=== PATIENT | female | born 1950 | race Caucasian/White ===

== ENCOUNTER 2021-10-14 22:11 | Inpatient (IN) | payer MEDICARE, OTHER ==
[~2021-10-14] VITALS: Ht 180.3 cm; Wt 102.5 kg
--- NOTE | 2021-10-14 22:40 | NUR ---
DR. MIKE AT [facility], [facility].
[2021-10-14] MEDS ORDERED: ATOR10TA PO (22:45)
[2021-10-14] MEDS ORDERED: LISI2.5T14 PO (22:45)
[2021-10-14] MEDS ORDERED: WARF-58 PO (22:45)
[2021-10-14] MEDS ORDERED: ERYT3.5O24 EACHEYE (22:45)
[2021-10-14] MEDS ORDERED: BENZ68FO TP (22:45)
[2021-10-14] MEDS ORDERED: OMEP20CA15 PO (22:45)
[2021-10-14] MEDS ORDERED: TRAM50TA2 PO (22:45)
[2021-10-14] MEDS ORDERED: ACET-73 PO (22:45)
[2021-10-14 23:11] LABS: CREATININE 0.8 mg/dL (0.6-1.3); POTASSIUM 3.5 mmol/L (3.5-5.1)
[2021-10-14 23:41] LABS: MAGNESIUM 1.9 mg/dL (1.8-2.4)
[2021-10-15] MEDS ORDERED: CYANOCOBALAMIN 1000 MCG/ML VIAL IM ONE
--- NOTE | 2021-10-15 01:15 | NUR ---
GAVE REPORT TO EFREN STILES.
[2021-10-15] MEDS ORDERED: CYANOCOBALAMIN 1000 MCG/ML VIAL ONE (01:38)
--- NOTE | 2021-10-15 02:06 | NUR ---
Pt. admitted to [facility] , under care of Dr. Brunner and Magdi Allen. Belongs List completed
[2021-10-15 02:15] VITALS: BP 113/56
[2021-10-15] MEDS ORDERED: LORAZEPAM 1 MG TABLET PO PRN (03:00)
[2021-10-15] MEDS ORDERED: BLOOD SUGAR DIAGNOSTIC 1 EACH STRIP VI ONE (03:00)
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
[2021-10-15] MEDS ORDERED: MAGNESIUM HYDROXIDE 30 ML LIQUID UDC PO PRN (04:00)
[2021-10-15] MEDS ORDERED: MAG HYDROX/AL HYDROX/SIMETH 30 ML LIQUID UDC PO PRN (04:00)
[2021-10-15] MEDS ORDERED: FURO40TA5 PO (06:08)
[2021-10-15] MEDS: ACETAMINOPHEN 325 MG TABLET PO PRN ×3 (06:55→22:33)
[2021-10-15] MEDS: DIVALPROEX 125 MG TABLET.DR PO SCH ×2 (10:05→20:15)
[2021-10-15] MEDS: risperiDONE 1 MG TABLET PO SCH ×2 (10:43→20:13)
[2021-10-15] MEDS ORDERED: SIMV20TA2 PO (12:12)
--- NOTE | 2021-10-15 13:05 | NUR ---
WOUND CARE CONSULT: PT PRESENTS WITH LARGE RT LOWER LEG ULCER, PRESENT ON ADMISSION. DRY SCAB NOTED TO LEFT 2ND TOE, PRESENT ON ADMISSION. DR ORTA CALLED FOR DPM CONSULT. IN AGREEMENT WITH PLAN OF CARE.
--- NOTE | 2021-10-15 16:15 | NUR ---
CANDI Initial Discharge Note: Pt currently resides at [facility] located at [address] [place] [address] ([phone]). CANDI contacted [facility] and left a voicemail for the admissions department regarding pt's acceptance back upon discharge. Pt is agreeable to another SNF if she cannot return to he current residential. Pt stated she does not have any family or friends contact. CANDI will continue to work with pt and MD to ensure a safe and proper discharge plan.
--- NOTE | 2021-10-15 16:18 | NUR ---
Firearms Report: Loader Demolder completed and submitted a DOJ firearms report for 5150 a danger to self and grave disability certifications. A copy of report has been placed in patient chart.
--- NOTE | 2021-10-15 16:19 | NUR ---
CANDI Family Contact: Pt stated to this music writer, pt has no family and no friends contact.
[2021-10-15] MEDS ORDERED: ERYTHROMYCIN 0.5% OPHT OINT 3.5 GM TUBE EACHEYE SCH (17:00)
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
[2021-10-15 19:45] VITALS: BP 124/58
[2021-10-15] MEDS: TRAMADOL HCL 50 MG TABLET PO PRN (19:51)
[2021-10-15] MEDS: SIMVASTATIN 20 MG TABLET PO SCH (20:13)
[2021-10-15] MEDS: TEMAZEPAM 7.5 MG CAPSULE PO PRN (21:34)
[2021-10-16] MEDS: TRAMADOL HCL 50 MG TABLET PO PRN ×2 (02:18→20:04)
[2021-10-16] MEDS: ACETAMINOPHEN 325 MG TABLET PO PRN ×3 (04:34→20:58)
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
[2021-10-16 07:30] VITALS: BP 141/63
[2021-10-16] MEDS: risperiDONE 1 MG TABLET PO SCH ×2 (08:30→20:05)
[2021-10-16] MEDS: DIVALPROEX 125 MG TABLET.DR PO SCH ×2 (08:30→09:00)
[2021-10-16] MEDS: FUROSEMIDE 40 MG TABLET PO SCH (08:30)
[2021-10-16] MEDS ORDERED: WARFARIN SODIUM 4 MG TABLET PO SCH (09:00)
[2021-10-16] MEDS: TOPIRAMATE 25 MG TABLET PO SCH ×2 (14:23→20:09)
--- NOTE | 2021-10-16 15:36 | NUR ---
Dr. Packer examined this patient right lower leg ulcer and left 2nd toe, and orders are being carry out, such as zero foam, thera honey and dopler ultrassound ( arterial).
[2021-10-16 16:00] VITALS: BP 97/67
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
[2021-10-16] MEDS ORDERED: WARFARIN SODIUM 4 MG TABLET PO ONE (17:00)
--- NOTE | 2021-10-16 17:17 | NUR ---
Patient refuses blood to be drawn, Coumadin 8 mg not given as requested by pharmacy.
--- NOTE | 2021-10-16 18:14 | NUR ---
Patient refuses wound cleanse and dressing. 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 Pt. wrapped toilet paper around her wound.
[2021-10-16 19:55] VITALS: BP 131/64
[2021-10-16] MEDS: SIMVASTATIN 20 MG TABLET PO SCH (20:05)
[2021-10-17] MEDS: ACETAMINOPHEN 325 MG TABLET PO PRN ×3 (03:19→19:08)
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
[2021-10-17 07:31] LABS: HEMATOCRIT 30.2 % (31.2-41.9); MEAN CORPUSCULAR HEMOGLOBIN 32.9 uug (24.7-32.8); PLATELET COUNT (AUTO) 328 K/uL (179-408)
[2021-10-17 07:58] LABS: THYROID STIMULATING HORMONE 0.561 mIU/mL (0.358-3.740)
[2021-10-17 08:17] VITALS: BP 134/84
[2021-10-17] MEDS: TOPIRAMATE 25 MG TABLET PO SCH ×2 (08:53→17:39)
[2021-10-17] MEDS: FUROSEMIDE 40 MG TABLET PO SCH (08:56)
[2021-10-17] MEDS: TRAMADOL HCL 50 MG TABLET PO PRN ×2 (08:56→15:56)
[2021-10-17] MEDS: risperiDONE 1 MG TABLET PO SCH ×2 (08:56→20:23)
[2021-10-17] MEDS: THERAHONEY GEL 1.5 OZ TUBE TOP SCH (09:00)
[2021-10-17 09:05] LABS: BILIRUBIN,TOTAL 0.2 mg/dL (0.2-1.0); CREATININE 0.8 mg/dL (0.6-1.3); PHOSPHOROUS 4.1 mg/dL (2.5-4.9); POTASSIUM 4.2 mmol/L (3.5-5.1); TOTAL PROTEIN, SERUM 6.9 g/dL (6.4-8.2)
--- NOTE | 2021-10-17 09:42 | NUR ---
Gps/Accountant Property- Patient ate 100 % of breakfast , when director music called patient needed to be NPO for CTA abdomen and pelvis , informed patient already ate good breakfast . Instructions received to keep patient NPO for now, patient was well informed of the procedure. Venous doppler also in progress at her bedside , both lower ext.
[2021-10-17] MEDS ORDERED: WARFARIN SODIUM 5 MG TABLET PO ONE (10:00)
[2021-10-17] MEDS: CYANOCOBALAMIN 1,000 MCG TABLET PO SCH (11:55)
--- NOTE | 2021-10-17 11:57 | NUR ---
Gps/Electronic Component Processor- Saline lock #20 inserted to her right AC. in prep. for CTA pelvis and abdomen .Consent for the procedure was done , reviewed with patient, verbalized understanding.
[2021-10-17] MEDS ORDERED: IV NORMAL SALINE 250 ML IV ONE (12:32)
[2021-10-17] MEDS ORDERED: SWABABLE VALVE TRANSFER SET EA MC ONE (12:32)
[2021-10-17] MEDS ORDERED: IOHEXOL 350 100 ML INFUS..BTL ONE (12:32)
[2021-10-17 16:00] VITALS: BP 136/80
[2021-10-17] MEDS: SIMVASTATIN 20 MG TABLET PO SCH (20:25)
[2021-10-17] MEDS: TEMAZEPAM 7.5 MG CAPSULE PO PRN (20:44)
[2021-10-18] MEDS: TRAMADOL HCL 50 MG TABLET PO PRN ×3 (02:55→17:24)
[2021-10-18] MEDS: ACETAMINOPHEN 325 MG TABLET PO PRN ×3 (04:38→17:25)
--- NOTE | 2021-10-18 05:07 | NUR ---
Received patient in her rooms sitting in w/c, patient to be pleasant when greeted, A&Ox2, compliant with medications, snacks provided with good appetite. Patient noted to be sleeping in her w/c by the bathroom door , encouraged to sleep in her bed, however make excuse that she's needs to go to bathroom. Patient given Ultram and Tylenol for pain. Patient agreed to shower. Frequent monitoring observed. safety monitoring observed
[2021-10-18] MEDS: risperiDONE 1 MG TABLET PO SCH ×2 (09:32→20:12)
[2021-10-18] MEDS: TOPIRAMATE 25 MG TABLET PO SCH ×2 (09:33→17:36)
[2021-10-18] MEDS: FUROSEMIDE 40 MG TABLET PO SCH (09:33)
[2021-10-18] MEDS: CYANOCOBALAMIN 1,000 MCG TABLET PO SCH (09:33)
[2021-10-18] MEDS: THERAHONEY GEL 1.5 OZ TUBE TOP SCH (11:45)
[2021-10-18] MEDS: ENOXAPARIN SODIUM 100 MG/ML DISP.SYRIN SQ SCH ×2 (11:52→21:44)
--- NOTE | 2021-10-18 15:54 | NUR ---
Gps/Warehouse Administrator--Wound care to right lower ext,. done as ordered..Patient claimed she needed to be back on doxycicline 100 mg po BID, claimed she did not complete her oral abx tx r/t to she fell at the facility . Jeramie Justice DNP was called, as requested by patient, order received.
--- NOTE | 2021-10-18 15:56 | NUR ---
SW Family Contact Update: Pt's sister, Millicent ([phone]) left a voicemail for this SW stating that the pt wanted to go to go live with her upon discharge. Millicent stated the that neither she nor any family members are willing to have patient stay with them due to her volatility and threatening behavior. Millicent stated she is happy the pt is receiving care at [facility] and that she is safe. Millicent stated she is concerned for her sister's well-being. Millicent stated to this SW in the voicemail that pt has been in [facility] and served time but she is still fearful of patient. Plan : plant nursery worker will work on alternative placement if patient is willing.
--- NOTE | 2021-10-18 17:30 | NUR ---
Gps/Welfare Manager- Encouraged patient to elevated lower ext, when in bed, noted increased redness, as well as some edema, patient complained of burning pain on her wounds , encouraged to elevate lower ext. when in bed. Verbalized adequate pain relief .
[2021-10-18] MEDS: DOXYCYCLINE HYCLATE 100 MG TABLET PO SCH ×2 (17:36→21:01)
[2021-10-18] MEDS: SIMVASTATIN 20 MG TABLET PO SCH (20:12)
[2021-10-18] MEDS: TEMAZEPAM 7.5 MG CAPSULE PO PRN (20:45)
[2021-10-18 20:49] VITALS: BP 126/56
[2021-10-19 07:46] VITALS: BP 118/73
[2021-10-19] MEDS: FUROSEMIDE 40 MG TABLET PO SCH (08:12)
[2021-10-19] MEDS: risperiDONE 1 MG TABLET PO SCH ×2 (08:12→20:56)
[2021-10-19] MEDS: DOXYCYCLINE HYCLATE 100 MG TABLET PO SCH ×2 (08:12→20:55)
[2021-10-19] MEDS: TOPIRAMATE 25 MG TABLET PO SCH ×2 (08:12→16:17)
[2021-10-19] MEDS: CYANOCOBALAMIN 1,000 MCG TABLET PO SCH (08:14)
[2021-10-19] MEDS: THERAHONEY GEL 1.5 OZ TUBE TOP SCH (08:14)
[2021-10-19] MEDS: ENOXAPARIN SODIUM 100 MG/ML DISP.SYRIN SQ SCH ×2 (08:15→21:00)
[2021-10-19 08:38] LABS: CREATININE 0.8 mg/dL (0.6-1.3); POTASSIUM 3.6 mmol/L (3.5-5.1)
[2021-10-19 16:02] VITALS: BP 128/53
[2021-10-19] MEDS: WARFARIN SODIUM 4 MG TABLET PO SCH (16:20)
[2021-10-19] MEDS: TRAMADOL HCL 50 MG TABLET PO PRN (16:22)
[2021-10-19] MEDS: ACETAMINOPHEN 325 MG TABLET PO PRN (16:52)
--- NOTE | 2021-10-19 20:30 | NUR ---
RECEIVED PATIENT IN HER ROOM SITTING IN A WHEEL CHAIR. SHE IS NOTED A/O X 3 ABLE TO VERBALIZED HER FEELINGS. PT I NO DISTRESS. HER MOOD IS LABILE AFFECT IS BLUNTED, SPEECH IS TANGENTAL. PATIENT IS COMPLAINT WITH HER MEDICATION REGIMENT AT THIS TIME. PT HAS A TREATMENT FOR HER WOUND ON HER RIGHT LOWER INNER LEG, NOTED STABLE. SHE WAS ADVISE TO REPORT ANY CHANGES IN HER CONDITION. SHE DENIED PAIN AT THIS TIME. HER V/S ARE STABLE. PATIENT WAS GIVEN PO FLUIDS AND SNACKS. PATIENT IS REASSURED FOR HER SAFETY, SAFETY AND FALL PRECAUTION ARE IN PLACE. WILL CONTINUE TO MONITOR.
[2021-10-19] MEDS: SIMVASTATIN 20 MG TABLET PO SCH (20:56)
[2021-10-20] MEDS: ACETAMINOPHEN 325 MG TABLET PO PRN ×3 (00:39→20:02)
[2021-10-20 07:30] VITALS: BP 116/43
[2021-10-20] MEDS: DOXYCYCLINE HYCLATE 100 MG TABLET PO SCH ×2 (09:41→20:03)
[2021-10-20] MEDS: TOPIRAMATE 25 MG TABLET PO SCH ×2 (09:44→17:23)
[2021-10-20] MEDS: risperiDONE 1 MG TABLET PO SCH ×2 (09:45→20:02)
[2021-10-20] MEDS: CYANOCOBALAMIN 1,000 MCG TABLET PO SCH (09:45)
[2021-10-20] MEDS: THERAHONEY GEL 1.5 OZ TUBE TOP SCH (09:45)
[2021-10-20] MEDS: FUROSEMIDE 40 MG TABLET PO SCH (09:45)
[2021-10-20] MEDS: ENOXAPARIN SODIUM 100 MG/ML DISP.SYRIN SQ SCH ×2 (09:47→20:04)
--- NOTE | 2021-10-20 14:42 | NUR ---
Received patient sleeping in her room. Pt. is A/O X 3 to person, place, environment. Pt. is isolative, demanding, argumentative. 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 It needs to be dry once in awhile" Tylenol 650 mg was given at 10:28 for lower back pain, effective. Compliant with medications. Patient is encourage to verbalize concerns. Fall and safety precautions implemented.
[2021-10-20 15:03] VITALS: BP 121/54
[2021-10-20] MEDS: WARFARIN SODIUM 4 MG TABLET PO SCH (17:23)
[2021-10-20] MEDS: SIMVASTATIN 20 MG TABLET PO SCH (20:02)
[2021-10-20] MEDS: TRAMADOL HCL 50 MG TABLET PO PRN (22:00)
[2021-10-20] MEDS: TEMAZEPAM 7.5 MG CAPSULE PO PRN (22:31)
[2021-10-21] MEDS: ACETAMINOPHEN 325 MG TABLET PO PRN ×2 (02:11→20:40)
[2021-10-21] MEDS: TRAMADOL HCL 50 MG TABLET PO PRN (04:01)
[2021-10-21 07:53] VITALS: BP 119/49
[2021-10-21] MEDS: CYANOCOBALAMIN 1,000 MCG TABLET PO SCH (08:21)
[2021-10-21] MEDS: TOPIRAMATE 25 MG TABLET PO SCH ×2 (08:21→17:40)
[2021-10-21] MEDS: DOXYCYCLINE HYCLATE 100 MG TABLET PO SCH ×2 (08:21→20:37)
[2021-10-21] MEDS: FUROSEMIDE 40 MG TABLET PO SCH (08:21)
[2021-10-21] MEDS: risperiDONE 1 MG TABLET PO SCH (08:22)
[2021-10-21] MEDS: THERAHONEY GEL 1.5 OZ TUBE TOP SCH (08:27)
[2021-10-21 15:50] VITALS: BP 112/49
[2021-10-21] MEDS ORDERED: risperiDONE 1 MG TABLET PO SCH (17:00)
--- NOTE | 2021-10-21 17:16 | NUR ---
Received patient sleeping in her room. Pt. is A/O X 3 to person, place, environment. Pt. 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 is refusing wound treatment. 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 Patient is encourage to vent feelings and emotions. Fall and safety precautions implemented.
[2021-10-21] MEDS: WARFARIN SODIUM 4 MG TABLET PO SCH (17:46)
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
[2021-10-21] MEDS: risperiDONE 2 MG TABLET PO SCH (20:37)
[2021-10-21] MEDS: SIMVASTATIN 20 MG TABLET PO SCH (20:37)
[2021-10-21 21:00] VITALS: BP 126/56
[2021-10-21] MEDS: TEMAZEPAM 7.5 MG CAPSULE PO PRN (21:05)
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
[2021-10-22] MEDS: ACETAMINOPHEN 325 MG TABLET PO PRN ×3 (05:04→20:40)
[2021-10-22] MEDS: TRAMADOL HCL 50 MG TABLET PO PRN ×2 (06:21→16:05)
[2021-10-22] MEDS: DOXYCYCLINE HYCLATE 100 MG TABLET PO SCH ×2 (08:51→20:31)
[2021-10-22] MEDS: CYANOCOBALAMIN 1,000 MCG TABLET PO SCH (08:52)
[2021-10-22] MEDS: TOPIRAMATE 25 MG TABLET PO SCH ×2 (08:52→18:04)
[2021-10-22] MEDS: FUROSEMIDE 40 MG TABLET PO SCH (08:52)
[2021-10-22] MEDS: risperiDONE 2 MG TABLET PO SCH ×2 (08:52→20:31)
[2021-10-22] MEDS: THERAHONEY GEL 1.5 OZ TUBE TOP SCH (08:57)
[2021-10-22 10:25] VITALS: BP 142/55
--- NOTE | 2021-10-22 11:30 | NUR ---
CANDI Discharge Update Update: CANDI contacted pt's friend, John ([phone]) per pt's request and discussed pt's discharge plan. John stated the pt is a close friend and he can provide care and transportation for her after discharge. CANDI informed John that this designer/writer will contact him with further updates in regards to discharge plan. John is aware and agreeable.
--- NOTE | 2021-10-22 11:39 | NUR ---
SW Family Contact: SW contacted and left a voicemail for Pt's sister, Millicent ([phone]) for a call back regarding pt's discharge update with her friend, Ojhn ([phone]) who agreed to provide transportation and care upon discharge.
--- NOTE | 2021-10-22 11:41 | NUR ---
WOUND CARE CONSULT: RECEIVED ANOTHER CONSULT FOR LOWER EXTREMITIES. PT FOLLOWED BY DR ORTA FOR LOWER LEGS. DEFER TO DPM FOR WOUND TREATMENT PLAN.
--- NOTE | 2021-10-22 11:58 | NUR ---
CANDI Family Contact: Pt's sister Millicent ([phone]) returned CANDI's call. CANDI stated pt's discharge update with her friend, John ([phone]) who agreed to provide transportation and care upon discharge. Millicent stated that the pt does not have any friends and they are her homeless friends. Millicent is aware that the pt has a right to choose. CANDI stated this designer writer will confirm with the Millicent prior to discharge.
--- NOTE | 2021-10-22 14:00 | NUR ---
Francisco from [facility] [place] called at 13:50 today, and informed that Yasmine's Writ is scheduled tomorrow at 08:[address] fax all information about the Writ. U needs to fax patient's information to director of public health, his phone number is [phone] for more information. In case patient is discharge before hearing, U needs to call Francisco at [phone].
--- NOTE | 2021-10-22 14:24 | NUR ---
GPS: PT WILL BE DISCHARGE TOMORROW PER ALEXANDRU AGUIRRE. INFORMED BEHAVIORAL DIRECTOR CURT AND CARTON MAKING MACHINIST MADE AWARE.
[2021-10-22 14:56] VITALS: BP 149/77
--- NOTE | 2021-10-22 16:07 | NUR ---
CANDI Early Discharge Note: Pt will be discharged to [facility] located at [address] [place] [id number] ([phone]) via Ambulance transportation on Thursday, October 23, 2021 at 7:30AM. CANDI spoke with admin coordinator, Adalgisa at the facility who states they are ready to accept the patient today. Pt is aware and agreeable with discharge plans. Pts sister, Millicent is aware and agreeable with the discharge plan. Per Millicent, pt does not have a DPOA or conservator. Pts friend, John ([phone]) stated to SW that he is unable to provide transportation for the pt and that the pt should follow the medical recommendation of the hospital. SW informed pt and pt is aware and agreeable. Pt is alert and oriented x4, is unable to plan for self-care at this time; however, is willing to accept care at SNF. Pt denies any suicidal or homicidal ideation. Pt will follow-up at the facility with Psychiatrist, Dr. Brunner and Cnc Maintenance Mechanic, Dr. Nicole. Pt presents with calm mood and congruent affect. PHARMACY: [facility] ([phone]) [phone] [facility] [id number].
[2021-10-22] MEDS ORDERED: WARFARIN SODIUM 4 MG TABLET PO SCH (17:00)
--- NOTE | 2021-10-22 17:53 | NUR ---
GPS: SPOKE WITH MELISSA DISPATCHER AT [facility]. OKAY TO YARD CLERK PT GOING TO [facility] TOMORROW AT 0730.
--- NOTE | 2021-10-22 18:26 | NUR ---
Patient is given Tylenol 650 mg at 13:56 and Tramadol at 16:05. Pt. refuses wound care. Pt. is delusional grandiose "I have many degrees and know what is best for me" Emotional support given. Fall and safety precautions implemented.
[2021-10-22 20:00] VITALS: BP 116/52
[2021-10-22] MEDS: SIMVASTATIN 20 MG TABLET PO SCH (20:31)
[2021-10-22] MEDS: TEMAZEPAM 7.5 MG CAPSULE PO PRN (21:53)
[2021-10-23] MEDS: ACETAMINOPHEN 325 MG TABLET PO PRN (03:12)
[2021-10-23] MEDS: TRAMADOL HCL 50 MG TABLET PO PRN (04:35)
--- NOTE | 2021-10-23 05:04 | NUR ---
GPS: Pt.already awake,requested for an early shower in preparation for her early discharge later. Slightly anxious,remains delusional and gets offensive easily when being re-directed. Continues to refuse wound care done to her right lower leg ulcer. Refusing to have right lower leg photographed despite numerous attempts by staff. Safe environment provided. Health teachings/instructions given by staff to pt.and verbalized understanding although not in agreement. Needs attended. Will continue to monitor.
--- NOTE | 2021-10-23 06:47 | NUR ---
GPS: Called [facility] in [place] to give report. Per "Juwan" campus receptionist at this time, RN hospitality house supervisor at this time unable to get report and instructing staff to call them back @ 0830. Informed Juwan that pt's time of pick-up here is 0730. RN supv at facility insisting she can't get report at the moment.
[2021-10-23 07:30] VITALS: BP 117/95
[2021-10-23] MEDS: risperiDONE 2 MG TABLET PO SCH (08:03)
[2021-10-23] MEDS: DOXYCYCLINE HYCLATE 100 MG TABLET PO SCH (08:03)
[2021-10-23] MEDS: CYANOCOBALAMIN 1,000 MCG TABLET PO SCH (08:03)
[2021-10-23] MEDS: TOPIRAMATE 25 MG TABLET PO SCH (08:03)
[2021-10-23] MEDS: FUROSEMIDE 40 MG TABLET PO SCH (08:03)
[2021-10-23] MEDS: THERAHONEY GEL 1.5 OZ TUBE TOP SCH (08:03)
--- NOTE | 2021-10-23 08:20 | NUR ---
CANDI Family Contact: SW contacted Pt's sister Millicent ([phone]) and informed her of pt's discharge this morning to [facility] ([phone]) and provide additional discharge details per request. Millicent is aware, agreeable and thankful.
--- NOTE | 2021-10-23 08:50 | NUR ---
Received orders to discharge this patient to [facility] by [facility]. Patient is A/O X 3 to person, place. Patient was agreeable to discharge plans. All 09:00 scheduled medications were given to patient. All valuables, belongings, and home medications were returned to patient. Patient left unit at 08:45am. Emotional support provided. Fall and safety precautions implemented.
== END 2021-10-23 08:45 | DRG 885 ==
LOC: ER 22:20 → GPS 10-15 01:38
PROVIDERS: ADMIT Nurse Practitioner Psychiatric/Mental Health; ATTEND Internal Medicine
DX: F25.0 Schizoaffective disorder, bipolar type (principal); L97.219 Non-pressure chronic ulcer of right calf with unspecified severity; L97.818 Non-pressure chronic ulcer of other part of right lower leg with other specified severity; D68.61 Antiphospholipid syndrome; I87.2 Venous insufficiency (chronic) (peripheral); Z79.01 Long term (current) use of anticoagulants; E78.5 Hyperlipidemia, unspecified; E66.9 Obesity, unspecified; Z68.31 Body mass index [BMI] 31.0-31.9, adult; E53.8 Deficiency of other specified B group vitamins; D63.8 Anemia in other chronic diseases classified elsewhere; I10 Essential (primary) hypertension; I73.9 Peripheral vascular disease, unspecified; M79.604 Pain in right leg; R79.89 Other specified abnormal findings of blood chemistry; D53.9 Nutritional anemia, unspecified; Z86.718 Personal history of other venous thrombosis and embolism; Z86.711 Personal history of pulmonary embolism; F41.9 Anxiety disorder, unspecified; Z88.6 Allergy status to analgesic agent; Z88.2 Allergy status to sulfonamides; Z88.1 Allergy status to other antibiotic agents
CPT/HCPCS: 36415; 71045; 83735; 83921; 84100; 84443; 85025; 85610; 86592; 93005; 97161; A4663; J1650; J3420; Q9967

== ENCOUNTER 2022-01-29 13:50 | Inpatient (IN) | payer MEDICARE, OTHER ==
[~2022-01-29] VITALS: Ht 180.3 cm; Wt 104.8 kg
[~2022-01-29 13:50] MED LIST: ACET-73 PO; BENZ68FO TP; FURO40TA5 PO; LISI2.5T14 PO; OMEP20CA15 PO; SIMV20TA2 PO; TRAM50TA2 PO; WARF-58 PO
--- NOTE | 2022-01-29 14:28 | NUR ---
PT WAS EVALUATED AND MEDICALLY CLEARED BY DR JACOBS FOR MHU ADMISSION. PT IS ON HOLD GRAVELY DISABLED. PT WAS TRANSFERED TO [facility] ROOM #[id number]. REPORT WAS GIVEN TO RN MHU.
[2022-01-29] MEDS ORDERED: MAGNESIUM HYDROXIDE 30 ML LIQUID UDC PO PRN (15:15)
[2022-01-29] MEDS ORDERED: BLOOD SUGAR DIAGNOSTIC 1 EACH STRIP VI ONE (15:15)
[2022-01-29] MEDS ORDERED: MAG HYDROX/AL HYDROX/SIMETH 30 ML LIQUID UDC PO PRN (15:15)
--- NOTE | 2022-01-29 15:18 | NUR ---
MHU: Admission Notes: Received 71 y/o female patient at 1450 hours on WC via ER staff. Patient is on a 5150 hold. Full Code status. Pt was AOx3, cooperative, calm, and responding to questions accordingly. No s/s of respiratory distress nor pain. Patient has lower (L) leg wound. Pictures taken. Patient ambulates, is self-care, and continent. Weight: 237 lbs, Height: 5'11". Patient will be followed up by psychiatrist Ceasar and car whacker Tiffany.
[2022-01-29 15:30] VITALS: BP 139/61
[2022-01-29] MEDS ORDERED: DIPH25CA83 PO (18:27)
[2022-01-29] MEDS ORDERED: ONDA-104 PO (18:27)
[2022-01-29] MEDS ORDERED: SENN-261 PO (18:27)
[2022-01-29] MEDS ORDERED: DOCU100C36 PO (18:27)
[2022-01-29] MEDS ORDERED: TEMA30CA PO (18:27)
[2022-01-29] MEDS ORDERED: POTA10CA43 PO (18:27)
[2022-01-29] MEDS ORDERED: RISP1TAB7 PO (18:27)
[2022-01-29] MEDS ORDERED: BENZ0.5T43 PO (18:27)
[2022-01-29] MEDS ORDERED: TOPI50TA24 PO (18:27)
[2022-01-29] MEDS ORDERED: ALBU18HF2 IH (18:28)
[2022-01-29] MEDS ORDERED: NYST60PO TP (18:28)
[2022-01-29] MEDS ORDERED: ICOS1CAP PO (18:30)
[2022-01-29] MEDS ORDERED: CHOL400T PO (18:30)
[2022-01-29] MEDS: WARFARIN SODIUM 4 MG TABLET PO SCH (19:13)
--- NOTE | 2022-01-29 19:13 | NUR ---
Patient is hyperverbal and non-compliant. Suspicious, and easily agitated. Manipulative. Must set boundaries.
[2022-01-29 19:46] VITALS: BP 142/64
[2022-01-29] MEDS: SIMVASTATIN 20 MG TABLET PO SCH (21:00)
[2022-01-29] MEDS: TEMAZEPAM 7.5 MG CAPSULE PO PRN (22:55)
[2022-01-29] MEDS: ACETAMINOPHEN 325 MG TABLET PO PRN (23:27)
[2022-01-30] MEDS: ACETAMINOPHEN 325 MG TABLET PO PRN ×4 (05:59→23:48)
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
[2022-01-30 07:30] VITALS: BP 136/52
[2022-01-30 08:41] LABS: HEMATOCRIT 33.1 % (31.2-41.9); MEAN CORPUSCULAR HEMOGLOBIN 33.2 uug (24.7-32.8); PLATELET COUNT (AUTO) 275 K/uL (179-408)
[2022-01-30 09:17] LABS: CREATININE 0.8 mg/dL (0.6-1.3); POTASSIUM 4.3 mmol/L (3.5-5.1)
[2022-01-30] MEDS ORDERED: risperiDONE 1 MG TABLET PO PRN (09:30)
[2022-01-30] MEDS ORDERED: DOCUSATE SODIUM 100 MG CAPSULE PO PRN (10:15)
[2022-01-30] MEDS ORDERED: ALBUTEROL SULFATE 8 GM HFA.AER.AD IH PRN (10:15)
[2022-01-30] MEDS ORDERED: SENNOSIDES 1 TABLET PO PRN (10:15)
[2022-01-30] MEDS ORDERED: ONDANSETRON HCL 4 MG TABLET PO PRN (10:15)
[2022-01-30] MEDS ORDERED: ALBUTEROL SULFATE 2.5 MG/3 ML NEBU NEB PRN (10:30)
[2022-01-30] MEDS: LISINOPRIL 20 MG TABLET PO SCH (10:42)
[2022-01-30] MEDS: FUROSEMIDE 40 MG TABLET PO SCH (10:43)
--- NOTE | 2022-01-30 10:44 | NUR ---
WOUND CARE CONSULT: PT PRESENTS WITH ULCERS TO LOWER EXTREMITIES, PRESENT ON ADMISSION. PT HAS BEEN REFUSING DRESSINGS AND STATES THAT SHE DOES NOT HAVE LEG ULCERS. DR ORTA CALLED FOR DPM CONSULT. IN AGREEMENT WITH PLAN OF CARE.
[2022-01-30] MEDS: risperiDONE 1 MG TABLET PO SCH ×2 (10:45→17:23)
[2022-01-30] MEDS: TOPIRAMATE 25 MG TABLET PO SCH ×2 (10:45→21:05)
--- NOTE | 2022-01-30 13:46 | NUR ---
Patient is given tylenol 650 mg for generalized pain rated 10 on the scale of 1 to 10, will be monitored for effectiveness.
--- NOTE | 2022-01-30 14:09 | NUR ---
CANDI Initial Discharge Note: Patient currently resides at [address] [place] [address]. Per patient, she would like to be discharged back to her apartment at [address] [place] [address]. Pt stated she does not have a DPOA or conservator at this time. CANDI will continue to work with patient, family, and MD to ensure a safe and proper discharge plan.
--- NOTE | 2022-01-30 14:18 | NUR ---
Firearms Report: Grinder Operator Automatic completed and submitted a DOJ firearms report for 5150 grave disability certifications. A copy of report has been placed in patient chart.
[2022-01-30 16:00] VITALS: BP 99/57
[2022-01-30] MEDS ORDERED: Medication Not On Formulary EA (Topiramate 50 MG) PO SCH (17:00)
[2022-01-30] MEDS ORDERED: WARFARIN SODIUM 4 MG TABLET PO SCH (17:00)
[2022-01-30] MEDS ORDERED: Medication Not On Formulary EA (Icosapent Ethyl (Vascepa) 1 GM) PO SCH (17:00)
[2022-01-30 17:23] LABS: *BILIRUBIN,URIN NEGATIVE (NEGATIVE); *BLOOD, URINE NEGATIVE (NEGATIVE); *CLARITY,URINE CLEAR (CLEAR); *COLOR,URINE LIGHT YELLOW (YELLOW); *KETONES,URINE NEGATIVE (NEGATIVE); *UROBILINOGEN,URINE 0.2 E.U./dl (NORMAL); LEUKOCYTE ESTERASE ,URINE NEGATIVE (NEGATIVE); NITRITE, URINE NEGATIVE (NEGATIVE); UGLUCOSE NEGATIVE (NEGATIVE)
[2022-01-30] MEDS: [UNRECOGNIZED DRUG - OTHER] PO SCH (17:23)
[2022-01-30] MEDS: ICOSAPENT ETHYL 1 GM PO SCH (17:23)
[2022-01-30] MEDS: WARFARIN SODIUM 4 MG TABLET PO SCH (17:25)
[2022-01-30] MEDS: NYSTATIN POWDER 15 GM BOTTLE TP SCH (17:25)
--- NOTE | 2022-01-30 19:31 | NUR ---
Wound care order noted. PT refuses to put a dressing. Pt states "it was covered for 6 month and it needs to be open to air to scab." Teaching provided, pt continues to decline.
[2022-01-30 19:46] VITALS: BP 139/51
[2022-01-30] MEDS: SIMVASTATIN 20 MG TABLET PO SCH (21:05)
[2022-01-30] MEDS: TEMAZEPAM 7.5 MG CAPSULE PO PRN (23:48)
[2022-01-31] MEDS: ACETAMINOPHEN 325 MG TABLET PO PRN ×3 (06:52→20:32)
[2022-01-31 07:30] VITALS: BP 124/54
[2022-01-31] MEDS ORDERED: POTASSIUM CHLORIDE 10 MEQ TAB.PRT.SR PO SCH (09:00)
[2022-01-31] MEDS: LISINOPRIL 20 MG TABLET PO SCH ×2 (09:00→09:18)
[2022-01-31] MEDS: THERAHONEY GEL 1.5 OZ TUBE TOP SCH (09:00)
[2022-01-31] MEDS ORDERED: CHOLECALCIFEROL 400 UNITS TABLET PO SCH (09:00)
[2022-01-31] MEDS: risperiDONE 1 MG TABLET PO SCH ×3 (09:15→18:11)
[2022-01-31] MEDS: FUROSEMIDE 40 MG TABLET PO SCH (09:25)
[2022-01-31] MEDS: TOPIRAMATE 25 MG TABLET PO SCH ×2 (09:25→20:30)
[2022-01-31] MEDS: POTASSIUM CHLORIDE 20 MEQ TAB.PRT.SR PO SCH (09:25)
[2022-01-31] MEDS: CHOLECALCIFEROL 1,000 UNIT TABLET PO SCH (09:25)
[2022-01-31] MEDS: [UNRECOGNIZED DRUG - OTHER] PO SCH ×2 (09:30→18:11)
[2022-01-31] MEDS: ICOSAPENT ETHYL 1 GM PO SCH ×2 (09:30→18:11)
[2022-01-31] MEDS: NYSTATIN POWDER 15 GM BOTTLE TP SCH ×2 (09:59→17:00)
--- NOTE | 2022-01-31 11:58 | NUR ---
Gps/Warm In Worker- Patient refused to [facility] her lower ext. wounds, claimed she does not need care at this poist, its all dry, no drainage and she will be following with her own Wound care Doctor when she leaves . Also claimed she had a Doctors' appointment today and 1230 @ [facility] for wound care . Patient requesting B/P check orthostatic (B/P lying 126/43 HR 64 Sitting 108/53 HR 66, standing B/P 124/52 HR 74 , refused her B/P med.(lisinopril)
--- NOTE | 2022-01-31 14:00 | NUR ---
Gps/Apprentice Funeral Director- Decreasing redness bilateral groin kept skin dry and clean, nystatin powder applied a ordered. Continue to refused wound care, refused dressing to her lower ext. wounds.
--- NOTE | 2022-01-31 14:38 | NUR ---
Patient had a court hearing today, and she requested a writ. Petition was sent to [address] fax number [phone].
[2022-01-31 16:16] VITALS: BP 126/57
[2022-01-31] MEDS ORDERED: WARFARIN SODIUM 4 MG TABLET PO SCH (17:00)
[2022-01-31 19:51] VITALS: BP 125/52
[2022-01-31] MEDS: SIMVASTATIN 20 MG TABLET PO SCH (20:30)
[2022-01-31] MEDS: TEMAZEPAM 7.5 MG CAPSULE PO PRN (20:57)
[2022-02-01] MEDS: ACETAMINOPHEN 325 MG TABLET PO PRN ×3 (02:03→23:23)
[2022-02-01] MEDS: LORAZEPAM 0.5 MG TABLET PO PRN (02:03)
[2022-02-01 07:30] VITALS: BP 127/60
[2022-02-01] MEDS: CHOLECALCIFEROL 1,000 UNIT TABLET PO SCH (08:58)
[2022-02-01] MEDS: TOPIRAMATE 25 MG TABLET PO SCH ×2 (08:58→20:37)
[2022-02-01] MEDS: POTASSIUM CHLORIDE 20 MEQ TAB.PRT.SR PO SCH (08:58)
[2022-02-01] MEDS: ICOSAPENT ETHYL 1 GM PO SCH ×2 (08:59→16:54)
[2022-02-01] MEDS: LISINOPRIL 20 MG TABLET PO SCH (08:59)
[2022-02-01] MEDS: NYSTATIN POWDER 15 GM BOTTLE TP SCH ×2 (08:59→16:52)
[2022-02-01] MEDS: risperiDONE 1 MG TABLET PO SCH ×3 (08:59→16:52)
[2022-02-01] MEDS: FUROSEMIDE 40 MG TABLET PO SCH (08:59)
[2022-02-01] MEDS: [UNRECOGNIZED DRUG - OTHER] PO SCH ×2 (08:59→16:54)
[2022-02-01] MEDS: THERAHONEY GEL 1.5 OZ TUBE TOP SCH (09:00)
--- NOTE | 2022-02-01 12:10 | NUR ---
Gps/Donor Services Team Leader- Stayed in the dinning room during her breakfast, compliant with routine meds. Complained of headache, tylenol 650 mg po given, verbalized adequate relief . Remains to refused wound care to her lower extremities. Ambulates around with front wheel walker.
[2022-02-01 16:00] VITALS: BP 111/43
[2022-02-01] MEDS ORDERED: WARFARIN SODIUM 2 MG TABLET PO SCH (17:00)
--- NOTE | 2022-02-01 17:18 | NUR ---
Gps/Packaging Clerk- Coumadin, not administered , INR 3.64 Pharmacy was informed..
[2022-02-01] MEDS: SIMVASTATIN 20 MG TABLET PO SCH (20:37)
[2022-02-01] MEDS: TEMAZEPAM 7.5 MG CAPSULE PO PRN (23:23)
--- NOTE | 2022-02-02 00:23 | NUR ---
patient c/o headache tylenol 650 mg po given.
[2022-02-02] MEDS: ACETAMINOPHEN 325 MG TABLET PO PRN ×3 (03:55→20:04)
--- NOTE | 2022-02-02 03:55 | NUR ---
patient c/o gen; pain. tylenol 650 mg po prn given.
--- NOTE | 2022-02-02 04:55 | NUR ---
patient stated i am feeling better. prn for pain effective.
--- NOTE | 2022-02-02 05:24 | NUR ---
GPS: Remain pleasant calm and cooperative.took sleeping pill. took shower this morning. Easily irritable when being re-directed. Has impaired judgement and poor insight. Needs attended. Wound on right lower extremity kept clean as much as possible. No bleeding noted. Will continue to monitor.
--- NOTE | 2022-02-02 05:52 | NUR ---
slept 5.30 hrs through the night after sleeping meds given.
[2022-02-02 07:42] VITALS: BP 119/63
[2022-02-02] MEDS: THERAHONEY GEL 1.5 OZ TUBE TOP SCH (09:00)
[2022-02-02] MEDS: TOPIRAMATE 25 MG TABLET PO SCH ×2 (09:14→20:51)
[2022-02-02] MEDS: risperiDONE 1 MG TABLET PO SCH ×3 (09:14→17:17)
[2022-02-02] MEDS: POTASSIUM CHLORIDE 20 MEQ TAB.PRT.SR PO SCH (09:15)
[2022-02-02] MEDS: FUROSEMIDE 40 MG TABLET PO SCH (09:15)
[2022-02-02] MEDS: [UNRECOGNIZED DRUG - OTHER] PO SCH ×2 (09:16→17:17)
[2022-02-02] MEDS: ICOSAPENT ETHYL 1 GM PO SCH ×2 (09:16→17:17)
[2022-02-02] MEDS: NYSTATIN POWDER 15 GM BOTTLE TP SCH ×2 (09:21→17:31)
[2022-02-02] MEDS: CHOLECALCIFEROL 1,000 UNIT TABLET PO SCH (09:22)
[2022-02-02] MEDS: LISINOPRIL 20 MG TABLET PO SCH (09:23)
[2022-02-02] MEDS: OXCARBAZEPINE 150 MG TABLET PO SCH ×2 (14:32→21:00)
--- NOTE | 2022-02-02 16:00 | NUR ---
Gps/Bat Carrier- Stayed in the activity room watching TV, participating in her group tx. Interacting with her selected peers. Refused dressing chnages to her lower ext. wounds, but night Nurse was able to do her wound care last night.
[2022-02-02 16:06] VITALS: BP 155/59
[2022-02-02] MEDS ORDERED: WARFARIN SODIUM 4 MG TABLET PO SCH (17:00)
[2022-02-02] MEDS ORDERED: WARFARIN SODIUM 2 MG TABLET PO SCH (17:00)
[2022-02-02 20:27] VITALS: BP 104/64
--- NOTE | 2022-02-02 20:43 | NUR ---
Pt complained of headache and pain in both knees and feet. Gave Tylenol 650mg PO per patient request.
--- NOTE | 2022-02-02 20:44 | NUR ---
Pt requested medication for trouble sleeping. Gave Temazepam for insomnia. Will continue to monitor.
[2022-02-02] MEDS: TEMAZEPAM 7.5 MG CAPSULE PO PRN (20:51)
[2022-02-02] MEDS: SIMVASTATIN 20 MG TABLET PO SCH (20:51)
--- NOTE | 2022-02-02 21:16 | NUR ---
Trileptal 150mg was given @ 1642 hours via nurse on previous shift.
--- NOTE | 2022-02-03 00:24 | NUR ---
Pt is compliant with POC. Instructed on the importance of keeping her (R) lower leg wound covered and its dressing intact. Stressed the importance of not disturbing the dressing, and if it becomes out of placed or soiled, to not touch her wound, and to notify this nurse instead. Stressed the importance of washing her hands often to help prevent infection.
[2022-02-03] MEDS: ACETAMINOPHEN 325 MG TABLET PO PRN ×3 (02:10→18:31)
--- NOTE | 2022-02-03 02:13 | NUR ---
Patient asked for pain medication r/t her knees and feet. gave Tylenol 650mg PO. Will continue to monitor.
[2022-02-03] MEDS: LORAZEPAM 0.5 MG TABLET PO PRN (02:17)
--- NOTE | 2022-02-03 02:20 | NUR ---
Pt requested medication to help her with trouble sleeping. Gave Ativan 0.5 mg for insomnia. Will continue to monitor.
[2022-02-03 07:43] VITALS: BP 148/74
[2022-02-03] MEDS: POTASSIUM CHLORIDE 20 MEQ TAB.PRT.SR PO SCH (09:10)
[2022-02-03] MEDS: CHOLECALCIFEROL 1,000 UNIT TABLET PO SCH (09:10)
[2022-02-03] MEDS: OXCARBAZEPINE 150 MG TABLET PO SCH (09:11)
[2022-02-03] MEDS: FUROSEMIDE 40 MG TABLET PO SCH (09:11)
[2022-02-03] MEDS: TOPIRAMATE 25 MG TABLET PO SCH (09:11)
[2022-02-03] MEDS: risperiDONE 1 MG TABLET PO SCH ×3 (09:11→16:45)
[2022-02-03] MEDS: LISINOPRIL 20 MG TABLET PO SCH (09:12)
[2022-02-03] MEDS: ICOSAPENT ETHYL 1 GM PO SCH ×2 (09:12→16:46)
[2022-02-03] MEDS: [UNRECOGNIZED DRUG - OTHER] PO SCH ×2 (09:12→16:46)
[2022-02-03] MEDS: THERAHONEY GEL 1.5 OZ TUBE TOP SCH (09:14)
[2022-02-03] MEDS: NYSTATIN POWDER 15 GM BOTTLE TP SCH ×2 (09:15→16:46)
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
[2022-02-03] MEDS ORDERED: OXCARBAZEPINE 150 MG TABLET PO SCH (13:00)
--- NOTE | 2022-02-03 15:32 | NUR ---
GPS: Nursing Notes: Requesting Antibiotic and Pain Medication: Staff called to Lisa Cook NP due to patient requesting pain medication and antibiotic for her leg, but MANUFACTURING PROCESS TECHNICIAN continue with her Tylenol for pain and no further orders were given, continue to monitor V/S, continue to monitor for safety, continue with treatment plan.
[2022-02-03 16:10] VITALS: BP 133/70
[2022-02-03] MEDS ORDERED: WARFARIN SODIUM 2 MG TABLET PO SCH (17:00)
[2022-02-03] MEDS ORDERED: TOPIRAMATE 25 MG TABLET PO SCH (17:00)
[2022-02-03 19:42] VITALS: BP 140/68
[2022-02-03] MEDS: TEMAZEPAM 7.5 MG CAPSULE PO PRN (20:30)
[2022-02-03] MEDS: SIMVASTATIN 20 MG TABLET PO SCH (20:30)
--- NOTE | 2022-02-03 20:42 | NUR ---
Pt was irritated, and displaying increased anxiety and anger when advised her about not waking her up for in 6 hours for prn Tylenol, and instead allowing her to continue sleeping if she is sleeping at that time. Pt expressed feelings such as "I want to kill somebody, don't you understand!" "I want to commit suicide!" "I want to cut off my leg!" "I can't believe the other nurse didn't give me my Tylenol!" "He should have woken me up!". Pt also requested medication to help with insomnia. Gave Temezepam. Will continue to monitor.
[2022-02-03] MEDS ORDERED: OXCARBAZEPINE 300 MG TABLET PO SCH (21:00)
[2022-02-04] MEDS: ACETAMINOPHEN 325 MG TABLET PO PRN ×2 (02:09→09:10)
[2022-02-04] MEDS: LORAZEPAM 0.5 MG TABLET PO PRN (02:22)
--- NOTE | 2022-02-04 02:22 | NUR ---
Pt requested medication for anxiety and to help her relax. Gave Ativan 0.5mg po prn. Will continue ot monitor.
[2022-02-04 07:30] VITALS: BP 134/68
[2022-02-04] MEDS ORDERED: OXCARBAZEPINE 300 MG TABLET PO SCH (09:00)
[2022-02-04] MEDS ORDERED: risperiDONE 1 MG TABLET PO SCH (09:00)
[2022-02-04] MEDS: CHOLECALCIFEROL 1,000 UNIT TABLET PO SCH (09:10)
[2022-02-04] MEDS: POTASSIUM CHLORIDE 20 MEQ TAB.PRT.SR PO SCH (09:10)
[2022-02-04] MEDS: FUROSEMIDE 40 MG TABLET PO SCH (09:10)
[2022-02-04 09:11] VITALS: BP 134/68
[2022-02-04] MEDS: [UNRECOGNIZED DRUG - OTHER] PO SCH (09:11)
[2022-02-04] MEDS: LISINOPRIL 20 MG TABLET PO SCH (09:11)
[2022-02-04] MEDS: NYSTATIN POWDER 15 GM BOTTLE TP SCH (09:11)
[2022-02-04] MEDS: ICOSAPENT ETHYL 1 GM PO SCH (09:11)
[2022-02-04] MEDS: THERAHONEY GEL 1.5 OZ TUBE TOP SCH (09:11)
[2022-02-04] MEDS ORDERED: INFLUENZA VACCINE 2022-2023 0.5 ML DISP.SYRIN IM ONE (10:30)
--- NOTE | 2022-02-04 11:14 | NUR ---
SW Mental Health Referral CANDI called [facility] ([phone]) [address] [place] [id number] and spoke with Elgin and scheduled telephone appointment for 02/06/22 at 9am.
--- NOTE | 2022-02-04 11:37 | NUR ---
SW Family Contact CANDI called and left voicemail for pt's sister, Elgin Palomo ([phone]) informing of pt's discharge home today via bus pass. CANDI informed pt's sister pt has been referred for psychiatry follow-up and home health care. Requested call back to further discuss discharge plan.
--- NOTE | 2022-02-04 11:48 | NUR ---
SW Home Health Referral CANDI called [facility] ([phone]) for fax number and faxed home health referral to [phone]. CANDI received call back informing [facility] is unable to provide nursing care in pt's area at this time. CANDI called [facility] ([phone]) for fax number and faxed referral to [phone]. CANDI called [facility] ([phone]) and faxed referral to [phone]. Received call back from Carroll with [facility] confirming they are able to accept pt for child care counselor services upon discharge.
--- NOTE | 2022-02-04 11:52 | NUR ---
CANDI Discharge Note Pt will be discharged home via bus pass transportation at 11AM. CANDI called and left voice mail for pt's sister, Elgin Palomo ([phone]) to inform of pt's discharge home. Pt is aware and agreeable with discharge plan. Pt is alert and oriented x3, in unable to plan for self-care at this time; however, pt is willing to return home. Pt denies any suicidal or homicidal ideation. Pt has telephone appointment scheduled with [facility] ([phone]) [address] [place] [id number] on 02/06/22 at 9am. Pt is scheduled for home health visits for wound care through [facility] ([phone]). Pt will follow-up with [employer], Dr. Nicole. Pt presents with calm mood and congruent affect. PHARMACY: [facility] ([phone]) [address] [place] [id number]. *NO COVID TEST *BUS PASS TRANSPORTATION AT 11AM Addendum: 02/04/22 at 1352 by CHARITO Ramirez Pt requested and was approved for taxi voucher for discharge from [facility] to home. Bus pass was returned to nurse supervisory historian.
--- NOTE | 2022-02-04 14:15 | NUR ---
GPS: Nursing Notes: Discharge Notes Patient is awake and responding to her name, compliant with her medications, cooperative with nursing care, showered, following staff directions, A/Ox4, discharge home to [facility] [place] [address] [place] [address]. Staff called [facility] (o) for Dr. Rex mejia. medications, and for Melina Jones, NONPROFIT DIRECTOR faxed prescription to [facility] (f), staff spoke with anitha García. Instructions and prescription given to patient. Patient needs to follow up with her primary care physician and psychiatrist as soon as possible. Transported home via [employer], escorted to taxi via w/c. bunker worker set up [facility] [employer] home planning consultant salesperson: Mayte for her Right lower leg ulcer. Also, social media strategist informed patient's sister - Elgin Palomo of discharge plan.
[2022-02-04] MEDS ORDERED: risperiDONE 2 MG TABLET PO SCH (21:00)
== END 2022-02-04 14:15 | disposition home health service (06) | DRG 885 ==
LOC: ER 13:50 → GPS 14:28
PROVIDERS: ADMIT Psychiatry & Neurology Psychosomatic Medicine; ATTEND Registered Nurse
DX: F25.0 Schizoaffective disorder, bipolar type (principal); L97.819 Non-pressure chronic ulcer of other part of right lower leg with unspecified severity; E66.9 Obesity, unspecified; Z68.32 Body mass index [BMI] 32.0-32.9, adult; I70.238 Atherosclerosis of native arteries of right leg with ulceration of other part of lower leg; F41.9 Anxiety disorder, unspecified; I50.9 Heart failure, unspecified; J45.909 Unspecified asthma, uncomplicated; Z79.899 Other long term (current) drug therapy; Z86.711 Personal history of pulmonary embolism; Z86.718 Personal history of other venous thrombosis and embolism; Z98.84 Bariatric surgery status; Z91.199 Patient's noncompliance with other medical treatment and regimen due to unspecified reason; Z88.2 Allergy status to sulfonamides; F29 Unspecified psychosis not due to a substance or known physiological condition; F32.A Depression, unspecified
CPT/HCPCS: 36415; 85025; 85610; 90686; 93005; A4663

== ENCOUNTER 2022-07-09 20:12 | Inpatient (IN) | payer MEDICARE, OTHER ==
[~2022-07-09] VITALS: Ht 180.3 cm; Wt 95.0 kg
[~2022-07-09 20:12] MED LIST changes: +ALBU18HF2 IH; +BENZ0.5T43 PO; -BENZ68FO TP; +CHOL400T PO; +DIPH25CA83 PO; +DOCU100C36 PO; +ICOS1CAP PO; +NYST60PO TP; +ONDA-104 PO; +POTA10CA43 PO; +SENN-261 PO; +TOPI50TA24 PO
--- NOTE | 2022-07-09 21:13 | NUR ---
Per [employer] Central Office Installer Ramana CHENG, patient will be admitted to hospital as Medical not Mental.
[2022-07-09 22:53] LABS: HEMATOCRIT 27.8 % (31.2-41.9); MEAN CORPUSCULAR HEMOGLOBIN 30.6 uug (24.7-32.8); MEAN CORPUSCULAR VOLUME 92.3 fL (75.5-95.3); PLATELET COUNT (AUTO) 363 K/uL (179-408)
[2022-07-09 23:10] LABS: CARBON DIOXIDE 32 mmol/L (21-32); CHLORIDE 103 mmol/L (98-107); CREATININE 1.4 mg/dL (0.6-1.3); GLUCOSE 111 mg/dL (74-106); POTASSIUM 4.2 mmol/L (3.5-5.1); UREA NITROGEN, BLOOD 49 mg/dL (7-18)
--- NOTE | 2022-07-10 00:06 | NUR ---
patient assigned to room 321 M/S
--- NOTE | 2022-07-10 00:15 | NUR ---
Called third floor and gave report to Brook CHENG.
--- NOTE | 2022-07-10 00:25 | NUR ---
Transferred patient to third floor. PROSPER Doe made aware of patient's arrival.
--- NOTE | 2022-07-10 00:35 | NUR ---
Admitted a 71 years old female with Dx of Bilateral Lower leg Cellulitis. Patient AAOx3, but with periods of psychosis. In no apparent distress. Complain of pain on BLE wound site. Awaiting admitting orders from MELANY Quan. BLE wound cleanse with NS, pat dry, apply Xeroform ,abd pad and wrap with Kerlix. IV site on right AC intact and patent. Routine admission care done. Plan of care initiated. Safety measure initiated and call light within reached.
[2022-07-10 01:30] VITALS: BP 107/41
[2022-07-10] MEDS ORDERED: ONDANSETRON 4 MG/2 ML VIAL IV PRN (01:30)
[2022-07-10] MEDS ORDERED: MAGNESIUM HYDROXIDE 30 ML LIQUID UDC PO PRN (01:30)
[2022-07-10] MEDS ORDERED: ZOLPIDEM 5 MG TABLET PO PRN (01:30)
[2022-07-10] MEDS ORDERED: REMEDY ESSENTIAL ZINC PASTE 113 GM TP PRN (01:30)
[2022-07-10] MEDS ORDERED: PIPERACILLIN/TAZOBACTAM/D5W 50 ML IV ONE (01:58)
[2022-07-10] MEDS ORDERED: PIPERACILLIN SODIUM/TAZOBACTAM 3.375 G in IV DEXTROSE 5% 50 ML IV SCH ×2 (02:00→10:00)
[2022-07-10] MEDS: ACETAMINOPHEN 325 MG TABLET PO PRN ×2 (02:15→09:15)
[2022-07-10 04:00] VITALS: BP 100/35
--- NOTE | 2022-07-10 05:40 | NUR ---
No adverse reaction noted from IV antibiotic. Tylenol 650mg PO given for complain of pain and effective. Needs attended to and met. Safety measure maintained and call light within reached.
[2022-07-10 06:47] LABS: MEAN CORPUSCULAR VOLUME 93.4 fL (75.5-95.3); PLATELET COUNT (AUTO) 278 K/uL (179-408)
--- NOTE | 2022-07-10 07:12 | NUR ---
WOUND CARE CONSULT: PT PRESENTS WITH SEVERE ULCERATIONS TO FEET, BILATERAL HEEL DEEP TISSUE INJURIES AND SACRAL DEEP TISSUE INJURY (INTACT) WITH SCARRING, ALL PRESENT ON ADMISSION. DR ALVAREZ TO BE CALLED THIS AM FOR SURGICAL CONSULT. DPM FOLLOW UP RECOMMENDED. DISCUSSED SKIN PROTECTION WITH NURSING STAFF. MD IN AGREEMENT WITH PLAN OF CARE.
[2022-07-10] MEDS: PANTOPRAZOLE SODIUM 40 MG VIAL IV SCH (08:02)
[2022-07-10] MEDS: HEPARIN SODIUM,PORCINE 5,000 UNITS/ML VIAL SQ SCH ×2 (08:07→21:47)
[2022-07-10 08:44] LABS: CARBON DIOXIDE 27 mmol/L (21-32); CHLORIDE 105 mmol/L (98-107); CREATININE 1.2 mg/dL (0.6-1.3); GLUCOSE 92 mg/dL (74-106); MAGNESIUM 2.4 mg/dL (1.8-2.4); PHOSPHOROUS 3.9 mg/dL (2.5-4.9); POTASSIUM 4.2 mmol/L (3.5-5.1); UREA NITROGEN, BLOOD 46 mg/dL (7-18)
[2022-07-10] MEDS: DOXYCYCLINE HYCLATE IV 100 MG in IV DEXTROSE 5% 100 ML IV SCH ×2 (09:01→21:41)
[2022-07-10] MEDS: MEROPENEM 0.5 G in IV NORMAL SALINE 50 ML IV SCH ×2 (09:17→17:02)
[2022-07-10 09:20] LABS: TRIGLYCERIDES 61 MG/DL (30-150)
[2022-07-10 09:21] LABS: CHOLESTEROL 110 mg/dL (<200); HDL CHOLESTEROL 63 mg/dL (40-60)
[2022-07-10 11:37] VITALS: BP 97/48
[2022-07-10] MEDS: TRAMADOL HCL 50 MG TABLET PO PRN ×2 (15:12→23:07)
[2022-07-11] MEDS: ACETAMINOPHEN 325 MG TABLET PO PRN ×3 (00:47→16:43)
[2022-07-11] MEDS: MEROPENEM 0.5 G in IV NORMAL SALINE 50 ML IV SCH ×3 (02:02→17:13)
[2022-07-11] MEDS: TRAMADOL HCL 50 MG TABLET PO PRN ×2 (06:01→16:42)
--- NOTE | 2022-07-11 06:45 | NUR ---
Patient is AAOX3 with confusion. She is compliant with meds, she has good appetite. Patient is very needy and demanding. However, she cooperate with staff very well. No adverse effect from antibiotic. IV site is dry, patent, wound care have been provided, as well as med for pain. She is now resting in her bed.
[2022-07-11 07:35] LABS: IRON, SERUM 34 ug/dL (50-175)
[2022-07-11] MEDS: PANTOPRAZOLE SODIUM 40 MG VIAL IV SCH (08:16)
[2022-07-11] MEDS: DOXYCYCLINE HYCLATE IV 100 MG in IV DEXTROSE 5% 100 ML IV SCH ×2 (08:16→20:10)
[2022-07-11] MEDS: HEPARIN SODIUM,PORCINE 5,000 UNITS/ML VIAL SQ SCH ×2 (08:17→20:15)
[2022-07-11] MEDS: TOPIRAMATE 25 MG TABLET PO SCH ×2 (10:07→20:12)
[2022-07-11] MEDS: risperiDONE 1 MG TABLET PO SCH ×2 (10:07→16:03)
[2022-07-11 11:27] VITALS: BP 103/40
[2022-07-11 15:22] VITALS: BP 101/60
--- NOTE | 2022-07-11 19:30 | NUR ---
Received patient sitting on the side of the bed. AAOx2-3. In no acute distress. IV site on right AC intact and patent. Dressing on BLE intact. Needs assessed and attended to. Safety measure initiated and call light within reached.
[2022-07-11] MEDS: TEMAZEPAM 15 MG CAPSULE PO PRN (20:12)
[2022-07-11] MEDS: TRAZODONE 50 MG TABLET PO SCH (20:12)
--- NOTE | 2022-07-11 21:00 | NUR ---
Noted IV on right AC leaking. Placed new IV on right FA #22G. Removed leaking IV on right AC.
[2022-07-12] MEDS: MEROPENEM 0.5 G in IV NORMAL SALINE 50 ML IV SCH ×3 (01:05→17:07)
[2022-07-12] MEDS: TRAMADOL HCL 50 MG TABLET PO PRN ×4 (02:41→21:28)
[2022-07-12] MEDS: ACETAMINOPHEN 325 MG TABLET PO PRN ×3 (06:19→21:26)
--- NOTE | 2022-07-12 06:32 | NUR ---
No adverse effect noted from IV antibiotic. Needs attended to and met. Safety measure maintained and call light within reached.
[2022-07-12] MEDS: PANTOPRAZOLE SODIUM 40 MG VIAL IV SCH (08:35)
[2022-07-12] MEDS: HEPARIN SODIUM,PORCINE 5,000 UNITS/ML VIAL SQ SCH ×2 (08:36→21:30)
[2022-07-12] MEDS: TOPIRAMATE 25 MG TABLET PO SCH ×2 (08:36→21:26)
[2022-07-12] MEDS: risperiDONE 1 MG TABLET PO SCH ×2 (08:36→16:02)
[2022-07-12] MEDS: DOXYCYCLINE HYCLATE IV 100 MG in IV DEXTROSE 5% 100 ML IV SCH ×2 (08:38→21:27)
[2022-07-12 12:00] VITALS: BP 114/55
[2022-07-12] MEDS: ARGININE/GLUTAMINE/CALCIUM BMB 1 EACH POWD.PACK PO SCH (16:02)
--- NOTE | 2022-07-12 17:38 | NUR ---
patient is alert,oriented x3, no sob, respirations are even nonlabored, skin warm and dry to touch, turned repositioned every 2 hours, floated heels on pillows, off load all the time while in bed, bilateral heel DTI, purplish color, educate patient as well to float her heels all the time, patient verbalized understanding of it. dressing to left toe and right lower leg ulcers done as ordered.
[2022-07-12 20:17] VITALS: BP 109/46
[2022-07-12] MEDS: TRAZODONE 50 MG TABLET PO SCH (21:26)
[2022-07-13] MEDS: MEROPENEM 0.5 G in IV NORMAL SALINE 50 ML IV SCH ×3 (02:36→17:35)
[2022-07-13] MEDS: TRAMADOL HCL 50 MG TABLET PO PRN ×3 (07:26→21:42)
[2022-07-13] MEDS: ACETAMINOPHEN 325 MG TABLET PO PRN ×3 (07:26→21:44)
[2022-07-13] MEDS: HEPARIN SODIUM,PORCINE 5,000 UNITS/ML VIAL SQ SCH ×2 (08:00→21:00)
[2022-07-13] MEDS: ARGININE/GLUTAMINE/CALCIUM BMB 1 EACH POWD.PACK PO SCH ×2 (08:01→17:35)
[2022-07-13] MEDS: risperiDONE 1 MG TABLET PO SCH ×2 (08:01→17:34)
[2022-07-13] MEDS: PANTOPRAZOLE SODIUM 40 MG VIAL IV SCH (08:01)
[2022-07-13] MEDS: DOXYCYCLINE HYCLATE IV 100 MG in IV DEXTROSE 5% 100 ML IV SCH (08:01)
[2022-07-13] MEDS: TOPIRAMATE 25 MG TABLET PO SCH ×2 (08:01→21:43)
--- NOTE | 2022-07-13 08:02 | NUR ---
patient is alert, oriented x4, no sob, respirations are even nonlabored, skin warm and dry to touch, patient refused to have IV access, and refused to have her IV ATB. patient stated, " I have been getting IV ATB from long time, I do not want it any more" risks and benefits explained, patient stated verbalization of understanding of it, still refused to have it. patient right to refuse respected, will follow up with MD.
--- NOTE | 2022-07-13 08:15 | NUR ---
Patient have been very agitated, irritable, anxious. She is very hard to please, and very demanding. She refused IV antibiotic, IV insertion; and morning labs. Patient have been very difficult with staff. However, she slept for some hours after administered medicines. MD have been made aware. Will continue to monitor patient for safety.
--- NOTE | 2022-07-13 11:03 | NUR ---
Asaf Quan NP made aware that patient is refusing IV ATB. Addendum: 07/13/22 at 1104 by MARTHA RUIZ RN, RN Offered atb IV x3, refused x3, despite explaining over and over. patient right to refuse respected.
[2022-07-13 12:24] VITALS: BP 100/42
[2022-07-13 15:13] VITALS: BP 101/61
[2022-07-13 15:17] VITALS: BP 133/58
[2022-07-13] MEDS: DOXYCYCLINE HYCLATE 100 MG TABLET PO SCH (17:34)
--- NOTE | 2022-07-13 18:22 | NUR ---
refused wound dressing to her lower ext, risks and benefits explained, still refused.
[2022-07-13 20:35] VITALS: BP 126/63
[2022-07-13] MEDS: TRAZODONE 50 MG TABLET PO SCH (21:43)
[2022-07-13] MEDS: TEMAZEPAM 15 MG CAPSULE PO PRN (21:44)
[2022-07-14] MEDS: MEROPENEM 0.5 G in IV NORMAL SALINE 50 ML IV SCH ×2 (02:00→12:14)
[2022-07-14] MEDS: TRAMADOL HCL 50 MG TABLET PO PRN ×3 (02:44→13:43)
[2022-07-14] MEDS: ACETAMINOPHEN 325 MG TABLET PO PRN ×3 (02:44→13:43)
[2022-07-14 04:26] VITALS: BP 113/57
[2022-07-14] MEDS: DOXYCYCLINE HYCLATE 100 MG TABLET PO SCH (06:22)
--- NOTE | 2022-07-14 06:30 | NUR ---
Patient is AAOX3 still confused and hallucinate. She is still refusing IV antibiotic, as well as IV insertion. She is doing well, she is med complaint. She used her bedside commode. Pain medications have been administered. Will continue to monitor patient for safety.
[2022-07-14] MEDS ORDERED: PANTOPRAZOLE SODIUM 40 MG TABLET.DR PO SCH (07:00)
[2022-07-14 07:51] LABS: HEMATOCRIT 24.8 % (31.2-41.9); MEAN CORPUSCULAR HEMOGLOBIN 30.3 uug (24.7-32.8); MEAN CORPUSCULAR VOLUME 92.6 fL (75.5-95.3); PLATELET COUNT (AUTO) 311 K/uL (179-408)
[2022-07-14 08:09] LABS: CARBON DIOXIDE 26 mmol/L (21-32); CHLORIDE 103 mmol/L (98-107); CREATININE 0.8 mg/dL (0.6-1.3); GLUCOSE 84 mg/dL (74-106); MAGNESIUM 1.5 mg/dL (1.8-2.4); PHOSPHOROUS 3.6 mg/dL (2.5-4.9); POTASSIUM 3.9 mmol/L (3.5-5.1); UREA NITROGEN, BLOOD 19 mg/dL (7-18)
[2022-07-14 09:00] VITALS: BP 114/45
[2022-07-14] MEDS ORDERED: ONDANSETRON ODT 4 MG TAB.RAPDIS SL PRN (09:15)
[2022-07-14] MEDS: HEPARIN SODIUM,PORCINE 5,000 UNITS/ML VIAL SQ SCH (09:25)
[2022-07-14] MEDS: ARGININE/GLUTAMINE/CALCIUM BMB 1 EACH POWD.PACK PO SCH ×2 (09:25→17:19)
[2022-07-14] MEDS: TOPIRAMATE 25 MG TABLET PO SCH (09:46)
[2022-07-14] MEDS: risperiDONE 1 MG TABLET PO SCH ×2 (09:46→17:19)
[2022-07-14] MEDS ORDERED: MAGNESIUM OXIDE 400 MG TABLET PO ONE (11:45)
[2022-07-14 12:34] VITALS: BP 97/61
[2022-07-14 16:00] VITALS: BP 126/63
[2022-07-14] MEDS ORDERED: OXYCODONE HCL 5 MG TABLET PO PRN (16:00)
[2022-07-14] MEDS ORDERED: MERO1PIG IV (16:29)
[2022-07-14] MEDS ORDERED: RISP1TAB7 PO (16:29)
[2022-07-14] MEDS ORDERED: TOPI25TA PO (16:29)
[2022-07-14] MEDS ORDERED: FURO-152 PO (16:30)
--- NOTE | 2022-07-14 19:45 | NUR ---
PATIENT IS ALERT & ORIENTED X4, AND SPEAKS ESTONIAN. VITAL SIGNS STABLE. PATIENT TOLERATES PO & IV MEDICATIONS AND DIET WELL. PATIENT HAD COMPLAINT OF PAIN. RN GAVE MEDICATIONS INDICATED. PATIENT EXPRESSED RELIEF. WOUND DRESSING CHANGED. PATIENT PARTICIPATES WITH PHYSICAL THERAPY SCHEDULED. MIDLINE INSERTED. CALL LIGHT WITHIN REACH. NO ACUTE DISTRESS. PATIENT MADE AWARE OF DISCHARGE. RN GAVE REPORT TO PROSPER SIERRA, AT [facility]. PATIENT BELONGINGS ACCOUNTED FOR. PATIENT BELONGINGS SIGNED. PATIENT DISCHARGE EDUCATION PROVIDED. PATIENT VERBALIZED UNDERSTANDING. ALL QUESTIONS ANSWERED. RN GAVE REPORT TO [facility]. PATIENT LEFT IN STABLE CONDITION WITH [facility].
== END 2022-07-14 19:45 | disposition home or self-care (01) | DRG 299 ==
LOC: ER 20:18 → MEDSURG3 22:36
PROVIDERS: ADMIT Nurse Practitioner Acute Care; ATTEND Nurse Practitioner Acute Care
DX: I70.235 Atherosclerosis of native arteries of right leg with ulceration of other part of foot (principal); N17.0 Acute kidney failure with tubular necrosis; L03.115 Cellulitis of right lower limb; Z16.24 Resistance to multiple antibiotics; F31.2 Bipolar disorder, current episode manic severe with psychotic features; L03.116 Cellulitis of left lower limb; L97.228 Non-pressure chronic ulcer of left calf with other specified severity; I87.8 Other specified disorders of veins; I70.242 Atherosclerosis of native arteries of left leg with ulceration of calf; L97.519 Non-pressure chronic ulcer of other part of right foot with unspecified severity; B96.5 Pseudomonas (aeruginosa) (mallei) (pseudomallei) as the cause of diseases classified elsewhere; I89.0 Lymphedema, not elsewhere classified; D64.9 Anemia, unspecified; F41.9 Anxiety disorder, unspecified; Z53.20 Procedure and treatment not carried out because of patient's decision for unspecified reasons; J45.909 Unspecified asthma, uncomplicated; Z79.899 Other long term (current) drug therapy; I50.9 Heart failure, unspecified; Z98.84 Bariatric surgery status; Z88.2 Allergy status to sulfonamides; Z59.01 Sheltered homelessness; Z88.1 Allergy status to other antibiotic agents; Z86.718 Personal history of other venous thrombosis and embolism; Z86.711 Personal history of pulmonary embolism
CPT/HCPCS: 36415; 71045; 83550; 83735; 84100; 85025; 85730; A4663; A6213; C9113; G0378; J1644; J2185; J2405; J2543; J3490; Q0162